=== PATIENT | female | born 2000 | race Caucasian/White ===

== ENCOUNTER 2021-04-06 19:37 | Emergency (ER) | payer SELFPAY ==
[~2021-04-06] VITALS: Ht 165.1 cm; Wt 59.0 kg
[2021-04-06 19:37] VITALS: BP 130/82
--- NOTE | 2021-04-06 19:37 | NUR ---
BIB TAKEN TO BED #9
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
--- NOTE | 2021-04-06 20:40 | NUR ---
IV PLACED AND BLOOD DRAWN FROM SITE.
--- NOTE | 2021-04-06 20:42 | NUR ---
PATIENT STATES, "I'M NOT GETTING UP AND GOING TO THE RESTROOM", PATIENT ALSO REFUSED A BED NIELSEN. PER PATIENT OFFERED TO HAVE STRIAGHT CATH AND GAVE CONSENT. UA SAMPLE COLLECTED. PATIENT TOELRATED WELL. UA AND BLOOD SAMPLES TAKEN TO MACHINIST MECHANIC WINTER.
[2021-04-06 20:55] LABS: BASOPHILS % (AUTO) 0.5 % (0.0-2.0); EOSINOPHILS # (AUTO) 0.1 K/uL (0-0.4); EOSINOPHILS % (AUTO) 1.1 % (0.0-4.0); HEMATOCRIT 35.4 % (36-48); HEMOGLOBIN 11.8 g/dL (12.0-16.0); LYMPHOCYTES # (AUTO) 1.7 K/uL (2.5-16.5); LYMPHOCYTES % (AUTO) 30.5 % (20.5-51.1); MEAN CORPUSCULAR HEMOGLOBIN 29 pg (27-31); MEAN CORPUSCULAR HGB CONC 33 g/dL (33-37); MEAN CORPUSCULAR VOLUME 86.7 fL (80-94); MONOCYTES # (AUTO) 0.5 K/uL (0.8-1.0); MONOCYTES % (AUTO) 8.8 % (1.7-9.3); NEUTROPHILS # (AUTO) 3.4 K/uL (1.8-7.7); NEUTROPHILS % (AUTO) 59.1 % (42.2-75.2); PLATELET COUNT (AUTO) 314 K/uL (140-450); RED BLOOD CELL COUNT(AUTO) 4.09 MIL/uL (4.20-5.40); RED CELL DISTRIBUTION WIDTH 15.2 % (11.6-13.7); WHITE BLOOD COUNT (AUTO) 5.7 K/uL (4.5-11.0)
--- NOTE | 2021-04-06 20:59 | NUR ---
PATIENT REFUSED CT. ERMD MADE AWARE AND EXPLAINED THE BENEFITS OF PROCEDURE. PATIENT STILL REFUSED CT SCAN.
[2021-04-06 21:17] LABS: BARBITURATE, URINE NEGATIVE ng/ml (NEG <=200); BENZODIAZEPINE, URINE NEGATIVE ng/mL (NEG <=200); CANNABINOID, URINE NEGATIVE ng/mL (NEG <=50); COCAINE, URINE NEGATIVE ng/mL (NEG <=300); OPIATE, URINE NEGATIVE ng/mL (NEG <=2000); PHENCYCLIDINE SCREEN,URINE NEGATIVE ng/mL (NEG <=25)
[2021-04-06 21:22] LABS: ALBUMIN 3.8 g/dL (3.4-5.0); ANION GAP 12.8 (8-16); ASPARTATE AMINOTRANSFERASE 20 U/L (15-37); CARBON DIOXIDE 23.7 mmol/L (21-32); CHLORIDE 106 mmol/L (98-107); CREATININE 0.7 mg/dL (0.6-1.3); GFR ARICAN-AMERICAN 139 mL/min (>90); GLUCOSE 94 mg/dL (74-106); POTASSIUM 3.5 mmol/L (3.5-5.1); SODIUM SERUM 139 mmol/L (136-145); TOTAL BILIRUBIN 0.3 mg/dL (0.0-1.0); UREA NITROGEN, BLOOD 13 mg/dL (7-18)
[2021-04-06 21:23] LABS: ACETAMINOPHEN < 0.5 ug/ml (10-30); SALICYLATE < 2.8 mg/dL (2.8-20.0)
--- NOTE | 2021-04-06 22:14 | NUR ---
PATIENT APPEARS TO BE RESPONDING TO INTERNAL STIMULI. PATIENT LAUGHS AT UNSEEN OBJECTS ON THE WALL. PATIENT ABLE TO BE REDIRECTED. PATIENT REMAINS CALM IN BED. PATIENT REMAINS ON STENCIL CUTTER MACHINE. VSS.
--- NOTE | 2021-04-06 23:16 | NUR ---
Patient appears to be resting comfortably in bed. Vital Signs within normal limits. Respirations even and unlabored.
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
[2021-04-06] MEDS ORDERED: HALOPERIDOL IM 5 MG/ML VIAL IM ONE (23:20)
[2021-04-06] MEDS ORDERED: diphenhydrAMINE 50 MG/ML VIAL IM ONE (23:20)
[2021-04-06] MEDS ORDERED: LORazepam 2 MG/ML VIAL IM ONE (23:20)
--- NOTE | 2021-04-07 00:36 | NUR ---
PATIENT RESTING IN BED WITH EYES CLOSED. NADR FROM MEDICATIONS GIVEN. PATIENT REMAINS ON TOBACCO CLASSER WITH VSS. PATIENT NO LONGER AGITATED OR COMPATIVE WITH STAFF. PATIENT RESPONSIVE TO TOUCH. BED IS LOCKED AND IN LOWEST POSITION.
--- NOTE | 2021-04-07 02:17 | NUR ---
Patient appears to be resting comfortably in bed. Vital Signs within normal limits. Respirations even and unlabored.
--- NOTE | 2021-04-07 04:23 | NUR ---
Patient appears to be resting comfortably in bed. Vital Signs within normal limits. Respirations even and unlabored.
--- NOTE | 2021-04-07 05:53 | NUR ---
PATIENT BP: 99/62. ERMD MADE AWARE AND GAVE NO NEW ORDERS AT THIS TIME. PATIENT REFUSING IV PLACEMENT AT THIS TIME. PATIENT REMAINS ON FLUTE POLISHER AND VSS.
--- NOTE | 2021-04-07 07:14 | NUR ---
Report and continuation of care received from BRAXTON Magana.
--- NOTE | 2021-04-07 07:14 | NUR ---
REPORT GIVEN TO JOSE RN, TRANSFER OF CARE.
--- NOTE | 2021-04-07 08:00 | NUR ---
Patient resting in semi-fowlers position with both eyes closed. monitoring and evaluation advisor in place. VSS; respirations even/unlabored.
--- NOTE | 2021-04-07 09:15 | NUR ---
Patient laying on left with with blanket over pt. Pt remains on monitor; VSS respirations even/unlabored. Bed locked in lowest position, side rails x2.
--- NOTE | 2021-04-07 10:45 | NUR ---
Patient resting in semi-fowlers position. VSS; respirations even/unlabored. Pt calm and cooperative. 2 Blankets provided per request.
--- NOTE | 2021-04-07 11:17 | NUR ---
Dr. Graham made aware of BP 101/58 and 94/52. Ham sandwich and juice provided.
--- NOTE | 2021-04-07 12:01 | NUR ---
Patient resting in left side with both eyes closed. HOB to low-fowlers per request. All pt needs met. VSS; BP 111/64. Rrespirations even/unlabored. Bed locked in lowest position, side rails x2.
--- NOTE | 2021-04-07 13:21 | NUR ---
Patient resting in position of comfort on left side. campus monitor remains in place. BP 111/64; HR 93 strong/regular, SpO2 98% on room air. Pt calm, cooperative at this time; requested to keep pulse oximetry off.
--- NOTE | 2021-04-07 14:30 | NUR ---
Patient resting in position of comfort on left side with blanket covering. monitor and storage bin tender remains in place. SpO2 98% on room air. Pt calm, cooperative at this time.
--- NOTE | 2021-04-07 16:00 | NUR ---
Patient successfully able to ambulate 20 steps, states slight dizziness. Patient back onto bed and nurse monitoring. Dr. Villanueva made aware.
--- NOTE | 2021-04-07 16:05 | NUR ---
Dr. Villanueva is reevaluating patient at bedside.
--- NOTE | 2021-04-07 16:08 | NUR ---
Pt A&Ox4, states she is staying at [facility] and requesting bus pass upon discharge. Also requesting homeless resource packet and food to go.
--- NOTE | 2021-04-07 16:30 | NUR ---
Patient discharged with v/s stable. Written and verbal after care instructions given and explained. Patient verbalized understanding. Ambulatory with steady gait. All questions addressed prior to discharge. Advised to follow up with PMD. PATIENT PROVIDED WITH BUS PASS X 2, HOMELESS RESOURCE PACKET, DIAPERS, AND FOOD BAG.
[2021-04-07 16:33] VITALS: BP 105/64
== END 2021-04-07 16:30 | disposition home or self-care (01) ==
LOC: MED 19:37
DX: F15.10 Other stimulant abuse, uncomplicated (principal); R41.82 Altered mental status, unspecified; R51.9 Headache, unspecified
CPT/HCPCS: 36415; 80053; 80305; 81025; 82550; 85025; 93005; 96372; 99285; G0480; G0482; J1200; J1630; J2060